=== PATIENT | male | born 1995 | race Caucasian/White ===

== ENCOUNTER 2018-02-07 08:45 | Day surgery (SDC) | payer BC ==
[~2018-02-07] VITALS: Ht 185.4 cm; Wt 104.3 kg
--- NOTE | ~2018-02-07 | OP ---
PATIENT NAME: DOMINIC CLAIRE MEDICAL RECORD: [id number] :89 LOCATION:[facility] ADMISSION DATE: SURGEON: RICHELLE WEBB MD DATE OF OPERATION: 02/07/2018 PREOPERATIVE DIAGNOSES: Tibial tubercle avulsion of the patellar tendon and internal derangement of the left knee. POSTOPERATIVE DIAGNOSIS: Painful [place]-Schlatter's ossicle of the left patella. PROCEDURE: 1. Diagnostic arthroscopy of the left knee. 2. Excision of [place]-Schlatter's ossicle. SURGEON: Richelle Webb MD ANESTHESIA: General. INTRAOPERATIVE COMPLICATIONS: None. SUMMARY OF PATHOLOGIC FINDINGS: While the ossicle was imbedded in the patellar tendon, it was also juxtaposed to the anterior aspect of the tibia just above the tibial tubercle and had a very irritated appearing synovitis like material between the ossicle and the bone itself, which likely represents the patient's symptomatic problems. OPERATIVE SUMMARY IN DETAIL: After obtaining the appropriate preoperative orthopedic surgery consent as well as anesthetic consultation, evaluation and clearance, the patient was brought to the operating room and placed on the operating table in supine position. After general laryngeal mask airway was administered, tourniquet was placed on the proximal aspect of the left lower extremity. Left lower extremity was then prepped and draped in routine sterile fashion. Leg was elevated and exsanguinated, tourniquet was inflated to 350 mmHg. Routine inferolateral portal was established followed by superomedial portal. Diagnostic arthroscopy at this point, showed very nice medial and lateral menisci as well as good patellofemoral joint. Essentially normal scope was done. There was no evidence of swelling or fragmentation into the joint itself. Having completed this, attention was turned to the patellar tendon. Incision was made from just below the inferior pole of patella to the tibial tubercle. Dissection was carried down to the paratenon, which was dissected off the paratenon. The midline incision of the patellar tendon revealed a large ossicle embedded into the tendon itself. This was excised and sent for pathology for permanent section. Having completed this, wound was copiously irrigated. The patellar tendon was reapproximated with #2-0 FiberWire. The paratenon was reapproximated with #2-0 Vicryl. This was followed by 4-0 Prolene in running fashion. The arthroscopic portals were likewise closed with 4-0 Prolene in interrupted fashion. Sterile dressings were applied. Tourniquet was deflated. The patient was awakened and taken to the recovery room in stable condition. All final needle and sponge counts were correct. TRANSINT:[id number] Voice Confirmation ID: [id number] DOCUMENT ID: [id number] OPERATIVE REPORT [id number] DOMINIC CLAIRE MD, RICHELLE MORALES at 1438 CC: [id number] DICTATION DATE: 02/07/18 1233 TRAILER CHIEF: 02/07/18 1244 [facility] [address] [id number]
[2018-02-07 10:18] VITALS: BP 120/66; Ht 185.4 cm; Wt 104.3 kg
[2018-02-07] MEDS ORDERED: HYDROCODONE-APA1 TAB PO (12:28)
== END 2018-02-07 14:35 | disposition home or self-care (01) ==
LOC: D.OPS 08:45 → D.PAN 12:00 → D.OPS 14:35 → D.PAN 15:35 → D.OPS 19:15 → D.PAN 19:15
DX: M23.92 Unspecified internal derangement of left knee (principal); S76.192A Other specified injury of left quadriceps muscle, fascia and tendon, initial encounter; Z01.812 Encounter for preprocedural laboratory examination; M92.52 Juvenile osteochondrosis of tibia tubercle

== ENCOUNTER → 2018-02-27 16:13 | Outpatient (CLI) | payer BC ==
[2018-02-07 10:18] VITALS: BMI 30.4
[~2018-02-27 16:13] MED LIST: HYDROCODONE-APA1 TAB PO
== END | disposition home or self-care (01) ==
LOC: D.MRI 16:13
DX: M25.561 Pain in right knee (principal)